=== PATIENT | male | born 1960 | race Caucasian/White ===

== ENCOUNTER → 2019-03-08 | Outpatient (CLI) | payer OTHER ==
[~2019-03-08] MED LIST: EFFEXOR37.5 MG PO; MOTRIN800 MG PO; NASONEX0.05 MG/AC INH; WELLBUTRIN SR150 MG PO
== END | disposition home or self-care (01) ==
LOC: MRI 00:15
DX: R41.3 Other amnesia (principal); R45.87 Impulsiveness; F68.8 Other specified disorders of adult personality and behavior

== ENCOUNTER 2020-04-16 12:32 | Emergency (ER) | payer OTHER ==
[~2020-04-16] VITALS: Ht 167.6 cm; Wt 91.2 kg
== END 2020-04-16 14:45 | disposition home or self-care (01) ==
LOC: ED 12:32
DX: S90.32XA Contusion of left foot, initial encounter (principal); F32.9 Major depressive disorder, single episode, unspecified; Z88.8 Allergy status to other drugs, medicaments and biological substances; Z79.899 Other long term (current) drug therapy; X58.XXXA Exposure to other specified factors, initial encounter; Y93.89 Activity, other specified; Y92.89 Other specified places as the place of occurrence of the external cause; Y99.8 Other external cause status

== ENCOUNTER 2022-06-09 09:28 | Emergency (ER) | payer OTHER ==
[~2022-06-09] VITALS: Ht 167.6 cm; Wt 91.2 kg
[~2022-06-09 09:28] MED LIST changes: +OMEPRAZOLE MAGN20 MG PO; +PAROXETINE HCL40 MG PO; +ZESTORETIC 10-1 EACH PO
[2022-06-09] MEDS ORDERED: TRAZODONE50 MG PO ×2 (10:31→10:32)
[2022-06-09] MEDS ORDERED: METFORMIN HYDR500 MG PO (10:31)
[2022-06-09] MEDS ORDERED: ZESTORETIC 10-1 EACH PO (10:32)
[2022-06-09] MEDS ORDERED: ULTRA OMEGA EAC PO (10:33)
[2022-06-09] MEDS ORDERED: ZETIA10 MG PO (10:34)
== END 2022-06-09 14:10 | disposition home or self-care (01) ==
LOC: ED 09:28
DX: S63.613A Unspecified sprain of left middle finger, initial encounter (principal); Z91.040 Latex allergy status; Z88.8 Allergy status to other drugs, medicaments and biological substances; Z79.899 Other long term (current) drug therapy; Z90.89 Acquired absence of other organs; W22.8XXA Striking against or struck by other objects, initial encounter; Y93.89 Activity, other specified; Y92.89 Other specified places as the place of occurrence of the external cause; Y99.8 Other external cause status

== ENCOUNTER → 2022-09-29 | Outpatient (CLI) | payer OTHER ==
[~2022-09-29] MED LIST changes: +METFORMIN HYDR500 MG PO; +TRAZODONE50 MG PO; +ULTRA OMEGA EAC PO; +ZETIA10 MG PO
[2022-10-03 01:06] LABS: CODFISH, IGE <0.10 kU/L (Class 0); EGG WHITE, IGE <0.10 kU/L (Class 0); MILK (COW), IGE <0.10 kU/L (Class 0); PEANUT, IGE <0.10 kU/L (Class 0); SOYBEAN, IGE <0.10 kU/L (Class 0); WHEAT, IGE <0.10 kU/L (Class 0)
== END | disposition home or self-care (01) ==
LOC: CT 15:59
PROVIDERS: ATTEND Specialist
DX: J32.4 Chronic pansinusitis (principal); J30.9 Allergic rhinitis, unspecified; J34.2 Deviated nasal septum

== ENCOUNTER → 2022-11-24 | Day surgery (SDC) | payer OTHER ==
[2022-11-20 11:21] VITALS: BP 155/93
[~2022-11-24] VITALS: Ht 167.6 cm; Wt 93.0 kg
[~2022-11-24] MED LIST changes: +HYDROCODONE-AC1 EACH PO; +OMNICEF300 MG PO
[2022-11-24 06:39] VITALS: BP 146/83
[2022-11-24 08:29] VITALS: BP 120/70
[2022-11-24 08:45] VITALS: BP 137/93
[2022-11-24 09:00] VITALS: BP 210/102
[2022-11-24 09:14] VITALS: BP 218/98
[2022-11-24 10:54] VITALS: BP 186/96
== END | disposition home or self-care (01) ==
LOC: SDC 11-20 11:00
PROVIDERS: ATTEND Specialist
DX: J34.2 Deviated nasal septum (principal); J30.9 Allergic rhinitis, unspecified; J32.9 Chronic sinusitis, unspecified; I10 Essential (primary) hypertension; F41.9 Anxiety disorder, unspecified; F32.A Depression, unspecified; E78.00 Pure hypercholesterolemia, unspecified

== ENCOUNTER → 2022-12-22 | Day surgery (SDC) | payer OTHER ==
[~2022-12-22] VITALS: Ht 167.6 cm; Wt 94.3 kg
[~2022-12-22] MED LIST changes: +SEPTDS PO
[2022-12-22 11:34] VITALS: BP 152/80
[2022-12-22 12:53] VITALS: BP 177/89
[2022-12-22 13:07] VITALS: BP 138/84
[2022-12-22 13:23] VITALS: BP 135/86
[2022-12-22 13:38] VITALS: BP 135/78
== END ==
LOC: SDC 12-18 16:15
PROVIDERS: ATTEND Specialist
DX: J34.89 Other specified disorders of nose and nasal sinuses (principal); I10 Essential (primary) hypertension; E11.9 Type 2 diabetes mellitus without complications; E78.00 Pure hypercholesterolemia, unspecified; G47.30 Sleep apnea, unspecified; K44.9 Diaphragmatic hernia without obstruction or gangrene; F32.A Depression, unspecified; Z98.890 Other specified postprocedural states

== ENCOUNTER 2024-02-29 09:39 | Emergency (ER) | payer OTHER ==
[~2024-02-29] VITALS: Ht 167.6 cm; Wt 99.8 kg
[~2024-02-29 09:39] MED LIST changes: +HYDROCODONE-AC1 EAC1 PO; +VIBRA-TAB100 MG PO
[2024-02-29] MEDS ORDERED: DIATRIZOATE MEG/DIATRIZO. SOD 120 ML BOT PO ONE (10:15)
[2024-02-29] MEDS ORDERED: MG-AL HYDROXIDE/SIMETICONE 30 ML UDC PO ONE (10:30)
[2024-02-29] MEDS ORDERED: Lidocaine Hydrochloride 2 GM/50 ML BOT T ONE (10:35)
[2024-02-29] MEDS ORDERED: DIATRIZOATE MEG/DIATRIZO. SOD 120 ML BOT ONE (10:51)
== END 2024-02-29 12:53 | disposition home or self-care (01) ==
LOC: ED 09:39
DX: R13.10 Dysphagia, unspecified (principal); R07.0 Pain in throat; Z88.8 Allergy status to other drugs, medicaments and biological substances; Z79.899 Other long term (current) drug therapy; Z90.89 Acquired absence of other organs